=== PATIENT | female | born 1940 | race Caucasian/White ===

== ENCOUNTER → 2017-07-08 | Outpatient (CLI) | payer MEDICARE | END | disposition home or self-care (01) | LOC: ROC 06-23 14:19 | PROVIDERS: ATTEND Radiology Radiation Oncology | DX: C21.0 Malignant neoplasm of anus, unspecified (principal) | CPT/HCPCS: 99214; G0463 ==

== ENCOUNTER → 2017-07-15 | Outpatient (CLI) | payer MEDICARE ==
[~2017-07-15] MED LIST: OMNIPAQUE 350 MG/ML, 100ML BOTTLE ONE
== END | disposition home or self-care (01) ==
LOC: CFH 12:43
PROVIDERS: ATTEND Radiology Radiation Oncology
DX: I25.10 Atherosclerotic heart disease of native coronary artery without angina pectoris (principal); I70.0 Atherosclerosis of aorta; E04.2 Nontoxic multinodular goiter; N32.89 Other specified disorders of bladder; N28.1 Cyst of kidney, acquired; D73.89 Other diseases of spleen; K76.89 Other specified diseases of liver; K76.0 Fatty (change of) liver, not elsewhere classified; K57.30 Diverticulosis of large intestine without perforation or abscess without bleeding; C21.0 Malignant neoplasm of anus, unspecified; Z90.49 Acquired absence of other specified parts of digestive tract
CPT/HCPCS: 71260; 74177; 82565; Q9967

== ENCOUNTER 2017-12-07 08:29 | Day surgery (SDC) | payer MEDICARE ==
[~2017-12-07] VITALS: Ht 162.6 cm; Wt 53.4 kg
[2017-12-07 09:00] VITALS: BP 180/99
[2017-12-07] MEDS ORDERED: AMLO5TAB2 PO (09:19)
[2017-12-07] MEDS ORDERED: CITA20TA5 PO (09:19)
[2017-12-07] MEDS ORDERED: ALPR1TAB6 PO (09:19)
[2017-12-07] MEDS ORDERED: LACTATED RINGERS 1,000 ML IV SCH (09:20)
[2017-12-07 09:40] LABS: BASOPHILS # (AUTO) 0.04 x10^3/uL (0-0.1); BASOPHILS % (AUTO) 1 % (0-1); EOSINOPHILS # (AUTO) 0.01 x10^3/uL (0-0.4); EOSINOPHILS % (AUTO) 0 % (1-7); LYMPHOCYTES # (AUTO) 0.57 x10^3/uL (1-3.4); LYMPHOCYTES % (AUTO) 8 % (22-44); MD NO; MEAN CORPUSCULAR HEMOGLOBIN 30.6 pg (27.0-34.8); MEAN CORPUSCULAR HGB CONC 33.7 g/dL (32.4-35.8); MEAN CORPUSCULAR VOLUME 90.8 fL (80-100); MEAN PLATELET VOLUME 8.8 fL (7.4-10.4); MONOCYTES # (AUTO) 0.16 x10^3/uL (0.2-0.8); MONOCYTES % (AUTO) 2 % (2-9); NEUTROPHILS # (AUTO) 6.03 x10^3/uL (1.8-6.8); NEUTROPHILS % (AUTO) 89 % (42-75); PLATELET COUNT 231 x10^3/uL (130-400); RED BLOOD COUNT 4.84 x10^6/uL (3.82-5.3); RED CELL DISTRIBUTION WIDTH 14.2 % (9.6-15.2)
[2017-12-07] MEDS ORDERED: PROPOFOL 10 MG/ML, 20ML ONE (09:45)
[2017-12-07] MEDS ORDERED: LIDOCAINE-MPF 2% ,5ML ONE (09:45)
[2017-12-07] MEDS ORDERED: OXYcodone 5 MG/5 ML ORAL.SOL UDC PO PRN (10:00)
[2017-12-07] MEDS ORDERED: FENTANYL PF 100 MCG/2ML IV PRN (10:00)
[2017-12-07] MEDS ORDERED: ONDANSETRON 2MG/ML, 2ML IVPush PRN (10:00)
[2017-12-07] MEDS ORDERED: HYDROcodone/APAP 7.5-325MG/15ML UDC PO PRN (10:00)
== END 2017-12-07 12:35 ==
LOC: OUT 08:29
PROVIDERS: ATTEND Internal Medicine
DX: C21.0 Malignant neoplasm of anus, unspecified (principal); K57.30 Diverticulosis of large intestine without perforation or abscess without bleeding; I10 Essential (primary) hypertension
CPT/HCPCS: 36415; 45391; 85025; 93005; J2704; J3490

== ENCOUNTER → 2018-08-17 | Outpatient (CLI) | payer MEDICARE ==
[~2018-08-17] MED LIST changes: +ALPR1TAB6 PO; +AMLO5TAB7 PO; +CITA20TA6 PO; -OMNIPAQUE 350 MG/ML, 100ML BOTTLE ONE
== END | disposition home or self-care (01) ==
LOC: ROC 13:16
PROVIDERS: ATTEND Radiology Radiation Oncology
DX: Z08 Encounter for follow-up examination after completed treatment for malignant neoplasm (principal); C21.0 Malignant neoplasm of anus, unspecified
CPT/HCPCS: G0463

== ENCOUNTER → 2018-09-12 | Outpatient (CLI) | payer MEDICARE ==
[~2018-09-12] MED LIST changes: +OMNIPAQUE 350 MG/ML, 100ML BOTTLE ONE
== END | disposition home or self-care (01) ==
LOC: CFH 12:53
PROVIDERS: ATTEND Radiology Radiation Oncology
DX: C21.0 Malignant neoplasm of anus, unspecified (principal); I10 Essential (primary) hypertension
CPT/HCPCS: 71260; 74160; Q9967

== ENCOUNTER 2019-01-03 06:59 | Day surgery (SDC) | payer MEDICARE ==
[~2019-01-03] VITALS: Ht 162.6 cm; Wt 54.1 kg
[~2019-01-03 06:59] MED LIST changes: +AMLO-150 PO; -AMLO5TAB7 PO; -OMNIPAQUE 350 MG/ML, 100ML BOTTLE ONE
[2019-01-03] MEDS ORDERED: LACTATED RINGERS 1,000 ML IV SCH (07:35)
[2019-01-03 07:44] VITALS: BP 143/94
[2019-01-03] MEDS ORDERED: LIDOCAINE-MPF 1%, 2ML INFIL ONE (08:00)
[2019-01-03 08:28] LABS: ALANINE AMINOTRANSFERASE 23 U/L (12-78); ANION GAP 8 mmol/L (5-15); CALCIUM 9.3 mg/dL (8.5-10.1); CHLORIDE 109 mmol/L (98-107); CREATININE 1.03 mg/dL (0.55-1.02)
[2019-01-03 08:31] LABS: ALKALINE PHOSPHATASE 60 U/L (45-117); BILIRUBIN,TOTAL 0.6 mg/dL (0.2-1.0); TOTAL PROTEIN 7.6 g/dL (6.4-8.2)
[2019-01-03] MEDS ORDERED: CEFAZOLIN 1,000 MG ONE (08:56)
[2019-01-03] MEDS ORDERED: PROPOFOL 10 MG/ML, 20ML ONE (08:56)
[2019-01-03] MEDS ORDERED: EPHEDRINE 50 MG/ML, 1ML ONE (08:56)
[2019-01-03] MEDS ORDERED: ONDANSETRON 2MG/ML, 2ML IVPush PRN (09:00)
[2019-01-03] MEDS ORDERED: OXYcodone 5 MG/5 ML ORAL.SOL UDC PO PRN (09:00)
[2019-01-03] MEDS ORDERED: MEPERIDINE/PF 25MG/0.5ML IVPush PRN (09:00)
[2019-01-03] MEDS ORDERED: FENTANYL PF 100 MCG/2ML IV PRN (09:00)
[2019-01-03] MEDS ORDERED: HYDROmorphone 1 MG/ML, 1ML IV PRN (09:00)
[2019-01-03] MEDS ORDERED: MIDAZOLAM 1 MG/ML, 2ML IV PRN (09:00)
[2019-01-03] MEDS ORDERED: LABETALOL 5MG/ML, 20ML IV PRN (09:00)
== END 2019-01-03 11:35 | disposition home or self-care (01) ==
LOC: OUT 06:59
PROVIDERS: ATTEND Internal Medicine
DX: K62.89 Other specified diseases of anus and rectum (principal); I10 Essential (primary) hypertension; F32.9 Major depressive disorder, single episode, unspecified; F41.9 Anxiety disorder, unspecified; Z85.048 Personal history of other malignant neoplasm of rectum, rectosigmoid junction, and anus
CPT/HCPCS: 36415; 45342; 80053; 88305; 93005; J0690; J2704; J7120

== ENCOUNTER 2019-08-24 09:11 | Outpatient (CLI) | payer MEDICARE | END 2019-08-24 23:59 | disposition home or self-care (01) | LOC: ROC 09:11 | PROVIDERS: ATTEND Radiology Radiation Oncology | DX: C21.0 Malignant neoplasm of anus, unspecified (principal) | CPT/HCPCS: G0463 ==

== ENCOUNTER 2020-04-11 08:01 | Outpatient (CLI) | payer MEDICARE | END 2020-04-11 23:59 | disposition home or self-care (01) | LOC: ROC 08:01 | PROVIDERS: ATTEND Radiology Radiation Oncology | DX: Z08 Encounter for follow-up examination after completed treatment for malignant neoplasm (principal); C21.0 Malignant neoplasm of anus, unspecified | CPT/HCPCS: G0463 ==

== ENCOUNTER 2020-06-19 11:54 | Emergency (ER) | payer MEDICARE ==
[~2020-06-19] VITALS: Ht 162.6 cm; Wt 53.9 kg
--- NOTE | 2020-06-19 12:42 | NUR ---
Pt arrives to ed with constipation pain and painful anus. Pt reports that it is very painful for her to sit down. Pt reports throbbing pain in anus. Pt reports she cannot get relief and has the urge to go to the bathroom but is unable to pass stool. Pt resting in bed. Pt is legally blind. Family member in car did not want to wait in room.
--- NOTE | 2020-06-19 12:55 | NUR ---
Darion Patel [phone]
--- NOTE | 2020-06-19 13:13 | NUR ---
Pt to CT
--- NOTE | 2020-06-19 13:22 | NUR ---
Pt back from CT
[2020-06-19 13:30] VITALS: BP 162/78
[2020-06-19] MEDS ORDERED: MAGNESIUM CITRATE 300ML ORAL SOL ONE (14:55)
[2020-06-19] MEDS ORDERED: MAGNESIUM CITRATE 300ML ORAL SOL PO ONE (15:00)
--- NOTE | 2020-06-19 15:44 | NUR ---
Patient given discharge instructions and they have confirmed that they understand the instructions. Patient ambulatory with steady gait.
[2020-06-19] MEDS ORDERED: PINK LADY ENEMA 490 ML BOTTLE PR ONE (16:00)
== END 2020-06-19 15:45 | disposition home or self-care (01) ==
LOC: ED 12:25
DX: K64.4 Residual hemorrhoidal skin tags (principal); K59.00 Constipation, unspecified; I10 Essential (primary) hypertension; Z85.048 Personal history of other malignant neoplasm of rectum, rectosigmoid junction, and anus
CPT/HCPCS: 74176; 99284

== ENCOUNTER → 2020-09-25 | Outpatient (CLI) | payer MEDICARE | END | disposition home or self-care (01) | LOC: ROC 07:24 | PROVIDERS: ATTEND Radiology Radiation Oncology | DX: Z08 Encounter for follow-up examination after completed treatment for malignant neoplasm (principal); I10 Essential (primary) hypertension; Z85.048 Personal history of other malignant neoplasm of rectum, rectosigmoid junction, and anus; Z90.49 Acquired absence of other specified parts of digestive tract | CPT/HCPCS: G0463 ==

== ENCOUNTER → 2020-09-25 | Outpatient (CLI) | payer MEDICARE ==
[~2020-09-25] MED LIST changes: +OMNIPAQUE 350 MG/ML, 100ML BOTTLE ONE
== END | disposition home or self-care (01) ==
LOC: CFH 10:29
PROVIDERS: ATTEND Radiology Radiation Oncology
DX: C21.0 Malignant neoplasm of anus, unspecified (principal); I10 Essential (primary) hypertension; Z90.49 Acquired absence of other specified parts of digestive tract
CPT/HCPCS: 71260; 74177; Q9967